=== PATIENT | male | born 1960 | race Caucasian/White ===

== ENCOUNTER 2019-04-26 00:18 | Emergency (ER) | payer OTHER ==
[~2019-04-26] VITALS: Ht 172.7 cm; Wt 90.7 kg
[2019-04-26] MEDS ORDERED: ALPRAZOLAM 0.5 MG TABLET ONE (00:26)
[2019-04-26] MEDS ORDERED: ALPRAZOLAM 0.25 MG TABLET PO ONE (00:30)
[2019-04-26 00:33] VITALS: BP 147/86
--- NOTE | 2019-04-26 00:34 | NUR ---
Patient discharged to home in stable conditon. Written and verbal after care instructions given. Patient verbalizes understanding of instructions. Patient ambulatory with steady gait with cane. Patient exit care package and personal belongings taken with the patient. Patient has good understanding of health and denies any pain/discomfort prior to discharge.
== END 2019-04-26 00:31 | disposition home or self-care (01) ==
LOC: ER 00:25
DX: F13.20 Sedative, hypnotic or anxiolytic dependence, uncomplicated (principal)
CPT/HCPCS: A4663